=== PATIENT | female | born 1960 | race Caucasian/White ===

== ENCOUNTER 2025-06-06 16:02 | Outpatient (CLI) | payer OTHER ==
[~2025-06-06 16:02] MED LIST: NABUMETONE750 MG PO; NORFLEX100MG PO
== END 2025-06-06 16:07 | disposition home or self-care (01) ==
LOC: RAD 16:02
PROVIDERS: ATTEND Physical Medicine & Rehabilitation
DX: M54.51 Vertebrogenic low back pain (principal); M54.6 Pain in thoracic spine; S22.32XA Fracture of one rib, left side, initial encounter for closed fracture